=== PATIENT | female | born 1950 ===

== ENCOUNTER 2019-08-29 18:07 | Emergency (ER) | payer SELFPAY ==
[~2019-08-29] VITALS: Ht 167.6 cm; Wt 100.0 kg
[2019-08-29 18:09] VITALS: BP 155/59
[2019-08-29] MEDS ORDERED: TRAZ-257 PO (18:16)
[2019-08-29] MEDS ORDERED: LISI-661 PO (18:16)
[2019-08-29] MEDS ORDERED: HYDR25TA PO (18:16)
[2019-08-29] MEDS ORDERED: SERT100T12 PO (18:16)
[2019-08-29] MEDS ORDERED: TOLT2TAB2 PO (18:16)
== END 2019-08-29 21:15 | disposition left against medical advice (07) ==
LOC: EMS 18:10
DX: R05 Cough (principal); Z53.21 Procedure and treatment not carried out due to patient leaving prior to being seen by health care provider